=== PATIENT | female | born 1995 | race African-American/Black ===

== ENCOUNTER 2017-03-30 18:52 | Emergency (ER) | payer SELFPAY ==
[~2017-03-30] VITALS: Ht 152.4 cm; Wt 50.0 kg
[2017-03-30 20:02] LABS: BASOPHILS # (AUTO) 0.01 K/uL (0.00-0.20); BASOPHILS % (AUTO) 0.2 % (0.0-2.0); EOSINOPHILS % (AUTO) 0.04 % (1.0-6.0); HEMOGLOBIN 15.6 g/dL (12.0-16.0); LYMPHOCYTES # (AUTO) 1.1 K/uL (1.0-4.8); LYMPHOCYTES % (AUTO) 16.8 % (22.0-44.0); MEAN CORPUSCULAR HEMOGLOBIN 31.5 pg (26.0-34.0); MEAN CORPUSCULAR HGB CONC 33.9 G/dL (31.0-37.0); MEAN CORPUSCULAR VOLUME 93 fL (80-100); MONOCYTES # (AUTO) 0.3 K/uL (0.1-1.0); NEUTROPHILS % (AUTO) 78.9 % (40.0-70.0); PLATELET COUNT (AUTO) 221 K/uL (150-450); RED BLOOD CELL COUNT(AUTO) 4.95 MIL/uL (4.00-5.20); RED CELL DISTRIBUTION WIDTH 12.2 % (11.5-14.5); WHITE BLOOD COUNT (AUTO) 6.4 K/uL (4.5-11.0)
[2017-03-30] MEDS ORDERED: SODIUM CHLORIDE 0.9% 1,000 ML IV ONE ×2 (20:30→20:45)
[2017-03-30 20:31] LABS: ANION GAP 11 mmol/L (8-16); CARBON DIOXIDE 24 mmol/L (22-29); CHLORIDE 101 mmol/L (98-107); CREATININE 0.94 mg/dL (0.60-1.30); GLOMERULAR FILTR. RATE CALC > 60 mL/min (>60); POTASSIUM 3.8 mmol/L (3.5-5.1); SODIUM SERUM 136 mmol/L (136-145); UREA NITROGEN, BLOOD 12 mg/dL (7-18)
[2017-03-30 20:38] LABS: ALANINE AMINOTRANSFERASE 26 U/L (12-78); ALBUMIN 4.3 g/dL (3.4-5.0); ASPARTATE AMINOTRANSFERASE 42 U/L (15-37); BILIRUBIN,TOTAL 0.6 mg/dL (0.1-1.0); TOTAL PROTEIN, SERUM 8.6 g/dL (6.4-8.2)
[2017-03-30] MEDS ORDERED: KETOROLAC TROMETHAMINE 30 MG/ML VIAL IVP ONE (20:45)
[2017-03-30] MEDS ORDERED: ONDANSETRON HCL 4 MG/2 ML VIAL IVP ONE (20:45)
[2017-03-30 21:45] VITALS: BP 100/62
[2017-03-30 22:17] LABS: APPEARANCE,URINE CLOUDY (CLEAR); GLUCOSE, URINE (UA) NEGATIVE (NEGATIVE); KETONES,URINE >=80 mg/dL (NEGATIVE); LEUKOCYTE ESTERASE ,URINE SMALL (NEGATIVE); OCCULT BLOOD,URINE SMALL (NEGATIVE); PH,URINE 5.5 (5.0-8.0); PROTEIN,URINE TRACE (NEGATIVE)
[2017-03-30 22:21] LABS: ADD UA MICROSCOPIC YES
[2017-03-31 00:48] LABS: SQUAMOUS EPITHELIAL CELL,UR Moderate /LPF (None Seen)
== END 2017-03-30 22:42 | disposition home or self-care (01) ==
LOC: EMS 18:54 → EDBD 18:54 → EMS 22:42
DX: K52.9 Noninfective gastroenteritis and colitis, unspecified (principal)
CPT/HCPCS: 36415; 80053; 81001; 83690; 84703; 85025; 87086; 96361; 96374; 96375; 99284; J1885; J2405; J7030